=== PATIENT | male | born 1990 | race African-American/Black ===

== ENCOUNTER 2023-12-05 20:20 | Emergency (ER) | payer BC ==
[2023-12-05] MEDS ORDERED: Acetaminophen 500 MG TAB ONE (20:30)
[2023-12-05 21:31] LABS: SARS-CoV-2 NAA Rapid Test Not Detected (NotDetected)
== END 2023-12-05 21:47 | disposition home or self-care (01) ==
LOC: ERS 20:20
DX: B34.9 Viral infection, unspecified (principal); E11.9 Type 2 diabetes mellitus without complications; I10 Essential (primary) hypertension; Z55.6 Problems related to health literacy; Z79.899 Other long term (current) drug therapy; Z79.85 Long-term (current) use of injectable non-insulin antidiabetic drugs
CPT/HCPCS: 99283